=== PATIENT | female | born 2000 | race Caucasian/White ===

== ENCOUNTER 2025-03-22 11:54 | Outpatient (CLI) | payer BC | END 2025-03-22 11:55 | disposition home or self-care (01) | LOC: CSHULT 11:54 | DX: R10.2 Pelvic and perineal pain (principal); N83.202 Unspecified ovarian cyst, left side | CPT/HCPCS: 76856 ==

== ENCOUNTER 2025-03-30 10:29 | Day surgery (SDC) | payer BC ==
[2025-03-30 12:21] LABS: #Basophils Less than 0.03 10x3/uL (0.0-0.2); #Eosinophils 0.09 10x3/uL (0.0-0.5); #Monocytes 0.43 10x3/uL (0.0-1.1); #Neutrophils 2.20 10x3/uL (1.5-8.4); %Basophils 0.2 % (0.0-2.0); %Eosinophils 2.0 % (0.0-6.0); %Lymphocytes 38.0 % (18.0-47.0); %Monocytes 9.7 % (0.0-10.0); %Neutrophils 49.9 % (40.0-75.0); Hematocrit 30.1 % (34.9-44.5); Hemoglobin 10.0 g/dL (12.0-15.5); Mean Corpuscular Hemoglobin 30.5 pg (27.0-33.0); Mean Corpuscular Volume 91.8 fL (81.6-98.3); Platelet Count 275 10x3/uL (150-450); Red Blood Cell (RBC) Count 3.28 10x6/uL (3.90-5.03); White Blood Cell (WBC) Count 4.42 10x3/uL (3.5-10.5)
[2025-03-30 12:33] LABS: Anion Gap 12 mmol/L (10-20); BUN (Urea Nitrogen) 8 mg/dL (7.0-18.7); Calc. Creatinine Clearance 0 mL/min (70-130); Calcium 8.5 mg/dL (7.8-10.44); Carbon Dioxide 25 mmol/L (22-29); Chloride 106 mmol/L (98-107); Glucose 92 mg/dL (70-105); Potassium 3.6 mmol/L (3.5-5.1); Sodium 139 mmol/L (136-145)
[2025-03-30] MEDS ORDERED: PROPOFOL 20 ML ONE (13:06)
[2025-03-30] MEDS ORDERED: Lidocaine 1% PF 5 ML VIAL ONE (13:10)
[2025-03-30] MEDS ORDERED: Scopolamine 1 mg/72 hour Patch ONE (13:20)
[2025-03-30] MEDS ORDERED: Ondansetron PF 4 MG/2 ML Vial ONE (13:49)
[2025-03-30] MEDS ORDERED: Lidocaine 2% 6 ML (Jelly) SYR ONE (13:59)
[2025-03-30] MEDS ORDERED: Ketorolac Tromethamine 30 MG (1 mL) VIAL ONE (14:00)
[2025-03-30] MEDS ORDERED: HYDROcodone/Acetaminophen 5/325 mg Tablet ONE (14:50)
== END 2025-03-30 15:18 | disposition home or self-care (01) ==
LOC: CSHSDC 10:29
PROVIDERS: ATTEND Surgery
PROC: 06BY0ZC Excision of Hemorrhoidal Plexus, Open Approach (ICD-10-PCS; principal; 2025-03-30)
DX: K64.8 Other hemorrhoids (principal); K64.4 Residual hemorrhoidal skin tags; Z88.1 Allergy status to other antibiotic agents
CPT/HCPCS: 80048; 85025; 88304; J0694; J1100; J1885; J2250; J2405; J2704; J3010